=== PATIENT | female | born 1960 | race Caucasian/White ===

== ENCOUNTER → 2023-09-12 11:51 | Outpatient (REF) | payer MEDICARE, OTHER, SELFPAY | LOC: HWRAD 11:51 | PROVIDERS: ATTENDING PHYSICIAN Nurse Practitioner Family | DX: Z78.0 Asymptomatic menopausal state (principal) | CPT/HCPCS: 77080 ==

== ENCOUNTER → 2023-09-19 07:38 | Outpatient (REF) | payer MEDICARE, OTHER, SELFPAY | LOC: EMG 07:38 | PROVIDERS: ATTENDING PHYSICIAN Nurse Practitioner Family | DX: R20.0 Anesthesia of skin (principal) | CPT/HCPCS: 95886; 95911 ==

== ENCOUNTER → 2023-10-27 10:12 | Outpatient (REF) | payer MEDICARE, OTHER, SELFPAY | LOC: HWRAD 10:12 | PROVIDERS: ATTENDING PHYSICIAN Nurse Practitioner Adult Health; FAMILY PHYSICIAN Nurse Practitioner Family | DX: R91.1 Solitary pulmonary nodule (principal) | CPT/HCPCS: 71250 ==

== ENCOUNTER → 2023-11-11 12:02 | Outpatient (REF) | payer MEDICARE, OTHER, SELFPAY | LOC: HWRAD 12:02 | PROVIDERS: ATTENDING PHYSICIAN Nurse Practitioner Family | DX: M25.531 Pain in right wrist (principal); M25.532 Pain in left wrist | CPT/HCPCS: 73110 ==

== ENCOUNTER → 2023-11-24 07:35 | Outpatient (REF) | payer MEDICARE, OTHER, SELFPAY | LOC: EMG 07:35 | PROVIDERS: ATTENDING PHYSICIAN Nurse Practitioner Family | DX: M79.671 Pain in right foot (principal); M79.672 Pain in left foot; R20.0 Anesthesia of skin | CPT/HCPCS: 95886; 95910 ==

== ENCOUNTER → 2024-01-27 08:18 | Outpatient (REF) | payer MEDICARE, OTHER, SELFPAY | LOC: HWWDC 08:18 | PROVIDERS: ATTENDING PHYSICIAN Obstetrics & Gynecology; FAMILY PHYSICIAN Nurse Practitioner Family | DX: Z12.31 Encounter for screening mammogram for malignant neoplasm of breast (principal) | CPT/HCPCS: 77063; 77067 ==

== ENCOUNTER → 2024-07-24 09:48 | Outpatient (REF) | payer MEDICARE, OTHER, SELFPAY | LOC: RAD 09:48 | PROVIDERS: ATTENDING PHYSICIAN Surgery Vascular Surgery; FAMILY PHYSICIAN Nurse Practitioner Family | DX: I70.1 Atherosclerosis of renal artery (principal); I70.209 Unspecified atherosclerosis of native arteries of extremities, unspecified extremity | CPT/HCPCS: 93922; 93975 ==

== ENCOUNTER → 2024-08-28 11:11 | Outpatient (REF) | payer MEDICARE, OTHER, SELFPAY | LOC: HWRAD 11:11 | PROVIDERS: ATTENDING PHYSICIAN Nurse Practitioner Family | DX: M54.2 Cervicalgia (principal) | CPT/HCPCS: 72050 ==

== ENCOUNTER → 2024-11-02 10:04 | Outpatient (REF) | payer MEDICARE, OTHER, SELFPAY | LOC: HWRAD 10:04 | PROVIDERS: ATTENDING PHYSICIAN Nurse Practitioner Family; REFERRING PHYSICIAN Nurse Practitioner Adult Health | DX: Z87.891 Personal history of nicotine dependence (principal) | CPT/HCPCS: 71271 ==

== ENCOUNTER → 2024-11-12 11:26 | Outpatient (REF) | payer MEDICARE, OTHER, SELFPAY ==
[2024-11-12 16:22] LABS: C-Reactive Protein < 5.00 mg/L (0.0-10.00)
[2024-11-12 17:14] LABS: Erythrocyte Sed Rate 7 mm/hour (0-20)
== END ==
LOC: HWLAB 11:26
PROVIDERS: ATTENDING PHYSICIAN Nurse Practitioner Family
DX: R51.9 Headache, unspecified (principal)
CPT/HCPCS: 36415; 85652; 86140

== ENCOUNTER → 2025-01-28 09:16 | Outpatient (REF) | payer MEDICARE, OTHER, SELFPAY | LOC: HWWDC 09:16 | PROVIDERS: ATTENDING PHYSICIAN Obstetrics & Gynecology; FAMILY PHYSICIAN Nurse Practitioner Family | DX: Z12.31 Encounter for screening mammogram for malignant neoplasm of breast (principal) | CPT/HCPCS: 77063; 77067 ==